=== PATIENT | male | born 1990 | race Asian ===

== ENCOUNTER 2016-08-26 22:22 | Emergency (ER) | payer OTHER ==
[~2016-08-26] VITALS: Ht 180.3 cm; Wt 84.9 kg
[~2016-08-26 22:22] MED LIST: BACTRIM,SEPT1 TABLET PO; BENADRYL25 MG PO; DOXYCYCLINE HY100 MG PO; PEPCID20 MG PO
[2016-08-27] MEDS ORDERED: ULTRAM50 MG PO (00:44)
[2016-08-27] MEDS ORDERED: FLEXERIL10 MG PO (00:44)
[2016-08-27 00:57] VITALS: BP 122/75
== END 2016-08-27 00:57 | disposition home or self-care (01) ==
LOC: RME 22:22 → EME 22:22 → RME 08-27 00:57
DX: S46.911A Strain of unspecified muscle, fascia and tendon at shoulder and upper arm level, right arm, initial encounter (principal); Z88.2 Allergy status to sulfonamides
CPT/HCPCS: 99281; 99284